=== PATIENT | male | born 1970 | race Caucasian/White ===

== ENCOUNTER → 2021-06-19 | Outpatient (CLI) | payer BC ==
[~2021-06-19] MED LIST: ADIPEX-P37.5 M1 PO; BUSPAR 10MG10 MG PO; BUSPIRONE HCL10 MG PO; CITALOPRAM HBR20 MG PO; CITALOPRAM HBR40 MG PO; ETODOLAC500 MG PO; LIRAGLUTIDE SQ; OMEPRAZOLE20 MG PO; PRAVASTATIN SOD20 MG PO
[2021-06-19 11:54] LABS: HEMOGLOBIN 13.2 gm/dl (14.0-17.5); RED BLOOD COUNT 5.23 M/UL (4.20-5.50); WHITE BLOOD COUNT 8.1 K/UL (4.5-11.0)
[2021-06-19 12:09] LABS: BUN/CREATININE RATIO 14 (0-10)
== END ==
LOC: OPSV2 11:05 → EDSTATUS 12:30 → OPSV2 12:30
PROVIDERS: Orthopaedic Surgery
DX: Z01.818 Encounter for other preprocedural examination (principal); M17.11 Unilateral primary osteoarthritis, right knee
CPT/HCPCS: 36415; 80048; 85027; 93005

== ENCOUNTER 2021-06-23 19:02 | Observation (INO) | payer BC ==
[~2021-06-23] VITALS: Ht 172.7 cm; Wt 115.7 kg
[2021-06-23 19:44] LABS: HEMOGLOBIN 13.1 gm/dl (14.0-17.5); RED BLOOD COUNT 5.07 M/UL (4.20-5.50); WHITE BLOOD COUNT 11.8 K/UL (4.5-11.0)
[2021-06-23 20:22] LABS: BUN/CREATININE RATIO 15 (0-10)
[2021-06-24 00:47] LABS: HEMOGLOBIN 11.3 gm/dl (14.0-17.5); WHITE BLOOD COUNT 9.6 K/UL (4.5-11.0)
[2021-06-24 00:52] LABS: RED BLOOD COUNT 4.42 M/UL (4.20-5.50)
[2021-06-25 06:42] LABS: BUN/CREATININE RATIO 22 (0-10)
[2021-06-25] MEDS ORDERED: COLCHICINE 0.60.6 MG PO (10:21)
== END 2021-06-25 12:57 | disposition home or self-care (01) ==
LOC: ER1 19:02 → CDU 06-24 00:30 → M/S 06-24 00:30
PROVIDERS: Physician Assistant; ADMIT Internal Medicine
DX: I30.9 Acute pericarditis, unspecified (principal); R07.89 Other chest pain; R94.31 Abnormal electrocardiogram [ECG] [EKG]; E78.5 Hyperlipidemia, unspecified; M17.11 Unilateral primary osteoarthritis, right knee; K21.9 Gastro-esophageal reflux disease without esophagitis; F41.9 Anxiety disorder, unspecified; D50.8 Other iron deficiency anemias; E66.9 Obesity, unspecified; Z20.822 Contact with and (suspected) exposure to COVID-19; Z88.1 Allergy status to other antibiotic agents; Z88.5 Allergy status to narcotic agent; Z79.899 Other long term (current) drug therapy; Z86.16 Personal history of COVID-19; Z82.49 Family history of ischemic heart disease and other diseases of the circulatory system
CPT/HCPCS: ECHO; 36415; 71045; 80053; 80061; 81001; 82550; 82553; 82607; 82728; 82746; 83036; 83540; 83550; 83605; 83735; 83874; 83880; 84100; 84439; 84443; 84484; 85025; 85045; 85379; 85384; 86140; 87040; 87081; 87880; 93005; 93306; 96372; 96374; 96376; 99285; G0378; J1650; J1885; J7030; Q9967; U0002

== ENCOUNTER → 2021-06-28 | Outpatient (CLI) | payer BC ==
[~2021-06-28] MED LIST changes: +COLCHICINE 0.60.6 MG PO
[2021-06-28 10:57] LABS: BUN/CREATININE RATIO 13 (0-10)
== END ==
LOC: LAB 09:20
PROVIDERS: Orthopaedic Surgery
DX: Z01.812 Encounter for preprocedural laboratory examination (principal); M17.10 Unilateral primary osteoarthritis, unspecified knee
CPT/HCPCS: 36415; 80048; 86850; 86900; 86901

== ENCOUNTER 2021-06-29 07:54 | Inpatient (IN) | payer BC ==
[~2021-06-29] VITALS: Ht 172.7 cm; Wt 116.1 kg
[2021-06-29] MEDS ORDERED: BUSPAR 10MG10 MG PO (08:32)
[2021-06-29] MEDS ORDERED: ETODOLAC500 MG PO (08:33)
[2021-06-30 11:48] LABS: HEMOGLOBIN 10.1 gm/dl (14.0-17.5); RED BLOOD COUNT 4.02 M/UL (4.20-5.50); WHITE BLOOD COUNT 9.3 K/UL (4.5-11.0)
== END 2021-06-30 13:00 | disposition home or self-care (01) | DRG 470 ==
LOC: OR 07:54 → M/S 07:55 → EDSTATUS 10:00 → OR 10:00 → M/S 18:21 → OR 06-30 13:00
PROVIDERS: Nurse Practitioner; ADMIT Orthopaedic Surgery
PROC: 0SPC04Z Removal of Internal Fixation Device from Right Knee Joint, Open Approach (ICD-10-PCS; 2021-06-29)
PROC: 0SRC0J9 Replacement of Right Knee Joint with Synthetic Substitute, Cemented, Open Approach (ICD-10-PCS; principal; 2021-06-29 10:00)
DX: M17.0 Bilateral primary osteoarthritis of knee (principal); E78.5 Hyperlipidemia, unspecified; K21.9 Gastro-esophageal reflux disease without esophagitis; Z20.822 Contact with and (suspected) exposure to COVID-19; E66.9 Obesity, unspecified; F41.9 Anxiety disorder, unspecified; K44.9 Diaphragmatic hernia without obstruction or gangrene; Z68.39 Body mass index [BMI] 39.0-39.9, adult; Z88.5 Allergy status to narcotic agent; Z88.1 Allergy status to other antibiotic agents; Z79.899 Other long term (current) drug therapy
CPT/HCPCS: 36415; 73560; 85025; 97110; 97116-GP-CQ; 97162; 97165; 97530; 97530-GP-CQ; 97535; C1713; C1776; J0171; J0735; J1100; J1200; J1650; J1885; J2250; J2274; J2704; J2795; J3010; J3475; J7120